=== PATIENT | female | born 1980 ===

== ENCOUNTER 2020-12-06 15:38 | Emergency (ER) | payer OTHER ==
[~2020-12-06] VITALS: Ht 157.5 cm; Wt 75.7 kg
== END 2020-12-06 20:27 | disposition home or self-care (01) ==
LOC: ER 15:38
DX: J06.9 Acute upper respiratory infection, unspecified (principal); Z20.822 Contact with and (suspected) exposure to COVID-19

== ENCOUNTER 2021-04-02 17:29 | Emergency (ER) | payer OTHER ==
[~2021-04-02] VITALS: Ht 157.5 cm; Wt 83.0 kg
== END 2021-04-02 20:08 | disposition home or self-care (01) ==
LOC: ER 17:29
DX: R30.0 Dysuria (principal)